=== PATIENT | female | born 1995 | race Caucasian/White ===

== ENCOUNTER 2019-03-17 05:25 | Day surgery (SDC) | payer OTHER ==
[2019-03-16 09:52] LABS: HEMATOCRIT 37.8 % (36.0-48.0); HEMOGLOBIN 13.2 g/dL (12-16); MCH 30.1 pg (26.0-34.0); MCHC 34.9 g/dL (31.0-37.0); MCV 86.3 fL (80.0-100.0); MEAN PLATELET VOLUME 9.2 fL (7.4-10.4); RBC 4.38 10x6/uL (4.00-5.40); RDW 12.2 % (11.5-14.5); WBC 8.4 10x3/uL (4.8-10.8)
[~2019-03-17] VITALS: Ht 172.7 cm; Wt 68.9 kg
--- NOTE | ~2019-03-17 | OP ---
PATIENT NAME: SAW BADILLO MEDICAL RECORD: [id number] :97 LOCATION:[facility] ADMISSION DATE: SURGEON: HEIDI CARLSON MD DATE OF OPERATION: 03/17/2019 PREOPERATIVE DIAGNOSIS: Large disc herniation, L5-S1, left. POSTOPERATIVE DIAGNOSIS: Large disc herniation, L5-S1, left. PROCEDURES: Lumbar laminotomy, medial facetectomy and foraminotomy L5-S1 left with discectomy L5-S1 left with METRx retractor. SURGEON: Heidi Carlson MD REFERRING PHYSICIAN: Dr. Pate DESCRIPTION OF THE TECHNIQUE: After induction of general endotracheal anesthesia, the patient was rolled prone on a Damian frame. Lumbar spine was prepped and draped in the usual sterile fashion. Fluoroscopic x-ray and spinal needle localized at the L5-S1 interspace on the left side. After infiltration of 1:100,000 epinephrine with 1% lidocaine, a stab incision was created with #11 blade. A series of dilators was used to advance a METRx retractor over the L5-S1 interspace on the left side. Level was confirmed with fluoroscopic x-ray. A microscope and Midas Nasir drill were used to perform laminotomy, medial facetectomy and foraminotomy at L5-S1 on the left. Hypertrophied ligamentum flavum was removed with Cloward rongeurs. Following this, there was a large disc herniation compressing the S1 nerve root within the axilla of the nerve root. The disk material was removed in the piecemeal fashion and then the additional material was removed from the disc space. Following this, the L5 and S1 nerve roots were completely decompressed. Meticulous hemostasis was maintained throughout the wound. The wound was irrigated with copious amounts of Ancef irrigant solution. The retractor was removed. The fascia was closed with 2-0 Vicryl suture, the subdermal layer was closed with 3-0 Vicryl suture. The skin was reapproximated with Steri-Strips and benzoin. A sterile dressing was applied to the wound. The patient was awakened in good condition, taken to recovery. All counts were reported as correct. Estimated blood loss was minimal. TRANSINT:[id number] Voice Confirmation ID: [id number] DOCUMENT ID: [id number] OPERATIVE REPORT [id number] SAW BADILLO CATINA Kayleigh HEIDI CARLSON MD CC: [id number] DICTATION DATE: 03/29/19 [address] FABRICATION SUPERVISOR: 03/30/19 0253 [facility] SDC 03/17/19 [id number] [place] [address]
[~2019-03-17 05:25] MED LIST: ADVIL100 M1 PO
[2019-03-17 06:34] VITALS: BP 126/89; Ht 172.7 cm; Wt 68.9 kg
[2019-03-17 06:49] LABS: HCG URINE NEGATIVE (NEGATIVE)
--- NOTE | 2019-03-17 09:40 | NUR ---
REC'D FROM RR. FAMILY AT BEDSIDE. INCISION CDI. ORANGE JUICE BROUGHT TO PATIENT.
--- NOTE | 2019-03-17 10:10 | NUR ---
FL TRAY BROUGHT TO PATIENT. FAMILY AT BEDSIDE.
--- NOTE | 2019-03-17 11:14 | NUR ---
C/O BACK PAIN 4-04/07. NORCO 10MG PO ADMINISTERED.
--- NOTE | 2019-03-17 12:00 | NUR ---
AMBULATED TO BATHROOM AND VOIDED WITHOUT DIFFICULTY.
--- NOTE | 2019-03-17 12:15 | NUR ---
WRITTEN AND VERBAL DC INST GIVEN TO PT ALONG WITH RX. VERBALIZED UNDERSTANDING. RATES PAIN 12/08. IV DC'D WITH CATHETER INTACT.
--- NOTE | 2019-03-17 12:35 | NUR ---
DC'D HOME WITH FAMILY VIA PRIVATE VEHICLE. TAKEN TO VEHICLE VIA WC. STABLE AT TIME OF DC.
== END 2019-03-17 12:35 | disposition home or self-care (01) ==
LOC: D.OPS 05:25 → D.PAN 07:30 → D.OPS 07:30
PROVIDERS: Anesthesiology; ATTEND Neurological Surgery
DX: M51.17 Intervertebral disc disorders with radiculopathy, lumbosacral region (principal)